=== PATIENT | female | born 1940 | race Caucasian/White ===

== ENCOUNTER 2021-11-19 21:45 | Inpatient (IN) | payer MEDICARE, SELFPAY ==
[2021-11-20] MEDS ORDERED: Ondansetron ODT 4 MG TAB PO PRN (01:34)
[2021-11-20] MEDS ORDERED: Morphine 4 MG/ML VIAL SLOW IVP PRN (01:34)
[2021-11-20] MEDS ORDERED: Morphine 2 MG/ML VIAL SLOW IVP PRN (01:34)
[2021-11-20] MEDS ORDERED: Dextrose 5% in Water 1,000 ML IV PRN (01:34)
[2021-11-20] MEDS ORDERED: Dextrose 50% Abboject 50 ML SYRINGE SLOW IVP PRN (01:34)
[2021-11-20] MEDS ORDERED: hydrALAZINE 20 MG/ML VIAL SLOW IVP PRN (01:34)
[2021-11-20] MEDS ORDERED: Ondansetron PF 4 MG/2 ML Vial IVP PRN (01:34)
[2021-11-20] MEDS ORDERED: Cyclobenzaprine 10 MG TAB PO PRN (01:42)
[2021-11-20] MEDS ORDERED: traMADol HCl 50 MG TAB PO PRN (01:42)
[2021-11-20] MEDS ORDERED: traMADol HCl 50 MG TAB PO SCH (01:45)
[2021-11-20] MEDS ORDERED: Acetaminophen 325 MG TAB PO SCH (01:45)
[2021-11-20] MEDS ORDERED: Sodium Chloride 0.9% 1,000 ML IV SCH (01:45)
[2021-11-20] MEDS ORDERED: Morphine 2 MG/ML VIAL ONE (01:47)
[2021-11-20] MEDS ORDERED: Ondansetron PF 4 MG/2 ML Vial ONE (01:47)
[2021-11-20 01:49] LABS: #Lymphocytes 1.1 thou/uL (1.20-3.40); #Monocytes 0.5 thou/uL (0.11-0.59); #Neutrophils 4.4 thou/uL (1.40-6.50); %Basophils 0.6 % (0.0-1.0); %Eosinophils 0.6 % (0.0-10.0); %Lymphocytes 18.4 % (21.0-51.0); %Monocytes 8.6 % (0.0-10.0); %Neutrophils 71.8 % (42.0-75.0); Hemoglobin 12.9 g/dL (12.0-16.0); Mean Corpuscular HGB CONC 33.7 g/dL (32.0-36.0); Mean Corpuscular Hemoglobin 31.6 pg (27.0-31.0); Mean Corpuscular Volume 93.8 fL (78.0-98.0); Mean Platelet Volume 7.6 fL (7.4-10.4); Platelet Count 213 thou/uL (130-400); RBC Distribution Width 11.3 % (11.5-14.5); Red Blood Cell (RBC) Count 4.08 mill/uL (4.20-5.40); White Blood Cell (WBC) Count 6.1 thou/uL (4.8-10.8)
[2021-11-20 02:07] LABS: ALT (SGPT) 19 U/L (8-55); AST (SGOT) 19 U/L (5-34); Albumin 3.1 g/dL (3.4-4.8); Alkaline Phosphatase 111 U/L (40-110); Anion Gap 16 mmol/L (10-20); BUN (Urea Nitrogen) 19 mg/dL (9.8-20.1); Bilirubin, Total 0.8 mg/dL (0.2-1.2); Calc. Creatinine Clearance 0 mL/min (70-130); Calcium 8.8 mg/dL (7.8-10.44); Carbon Dioxide 27 mmol/L (23-31); Chloride 102 mmol/L (98-107); Estimated GFR 91; Globulin 2.5 g/dL (2.4-3.5); Glucose 106 mg/dL (83-110); Magnesium 1.9 mg/dL (1.6-2.6); Phosphorus 3.1 mg/dL (2.3-4.7); Potassium 3.5 mmol/L (3.5-5.1); Protein, Total 5.6 g/dL (5.8-8.1); Sodium 141 mmol/L (136-145)
[2021-11-20] MEDS: Acetaminophen 325 MG TAB PO SCH ×2 (03:47→10:18)
[2021-11-20] MEDS: traMADol HCl 50 MG TAB PO SCH ×2 (03:47→10:18)
[2021-11-20] MEDS ORDERED: Non-Formulary Item 1 EACH (Sertraline Hcl [Sertraline Hcl] 50 MG Tablet) PO SCH (09:00)
[2021-11-20] MEDS ORDERED: Carbidopa/Levodopa 25-100 mg Tablet PO SCH (09:00)
[2021-11-20] MEDS ORDERED: Famotidine 20 MG TAB PO SCH (09:00)
[2021-11-20] MEDS ORDERED: OLANZAPINE 10 MG PO SCH (09:00)
[2021-11-20 12:19] VITALS: BP 176/78; TEMP 98.2
[2021-11-20] MEDS ORDERED: Senokot S 8.6-50 MG TAB PO SCH (21:00)
[2021-11-21] MEDS ORDERED: Metamucil PACK PO SCH (09:00)
[2021-11-21] MEDS ORDERED: PSYLLIUM HUSK 0.4 GM PO SCH (09:00)
[2021-11-21] MEDS ORDERED: OLANZapine 5 MG TAB PO SCH (09:00)
[2021-11-21] MEDS ORDERED: Polyethylene Glycol 3350 17 GM Packet PO SCH (09:00)
[2021-11-21] MEDS ORDERED: Non-Formulary Item 1 EACH (Polyethylene Glycol 3350 [Miralax] 119 GM Bottle) PO SCH (09:00)
[2021-11-21] MEDS ORDERED: Potassium Chloride 10 MEQ TAB PO SCH (09:00)
== END 2021-11-20 15:54 | DRG 535 ==
LOC: ERS 21:45 → SURG A 11-20 01:20
PROVIDERS: ADMIT Surgery; ATTEND Surgery
DX: S72.002A Fracture of unspecified part of neck of left femur, initial encounter for closed fracture (principal); S72.011A Unspecified intracapsular fracture of right femur, initial encounter for closed fracture; W19.XXXA Unspecified fall, initial encounter; G30.9 Alzheimer's disease, unspecified; F02.80 Dementia in other diseases classified elsewhere, unspecified severity, without behavioral disturbance, psychotic disturbance, mood disturbance, and anxiety; Y92.129 Unspecified place in nursing home as the place of occurrence of the external cause
CPT/HCPCS: 36415; 71045; 72170; 80053; 83735; 84100; 85025; 93005; 96374; 96375; G0390; J2270; J2405; J7050

== ENCOUNTER 2022-08-13 22:08 | Emergency (ER) | payer OTHER, MEDICARE ==
[2022-08-14 00:12] LABS: #Eosinphils 0.1 thou/uL (0.0-0.7); #Lymphocytes 1.6 thou/uL (1.20-3.40); #Monocytes 0.6 thou/uL (0.11-0.59); #Neutrophils 5.2 thou/uL (1.40-6.50); %Basophils 0.4 % (0.0-1.0); %Eosinophils 1.4 % (0.0-10.0); %Lymphocytes 21.3 % (21.0-51.0); %Monocytes 7.8 % (0.0-10.0); %Neutrophils 69.1 % (42.0-75.0); Hemoglobin 13.8 g/dL (12.0-16.0); Mean Corpuscular HGB CONC 32.6 g/dL (32.0-36.0); Mean Corpuscular Hemoglobin 30.1 pg (27.0-31.0); Mean Corpuscular Volume 92.5 fl (78.0-98.0); Mean Platelet Volume 7.7 fL (7.4-10.4); Platelet Count 174 10x3/uL (130-400); RBC Distribution Width 11.8 % (11.5-14.5); Red Blood Cell (RBC) Count 4.59 mill/uL (4.20-5.40); White Blood Cell (WBC) Count 7.6 10x3/uL (4.8-10.8)
[2022-08-14 00:31] LABS: ALT (SGPT) 14 U/L (8-55); AST (SGOT) 18 U/L (5-34); Albumin 3.7 g/dL (3.4-4.8); Alkaline Phosphatase 119 U/L (40-110); Anion Gap 14 mmol/L (10-20); BUN (Urea Nitrogen) 22 mg/dL (9.8-20.1); Bilirubin, Total 0.4 mg/dL (0.2-1.2); Calc. Creatinine Clearance 0 mL/min (70-130); Calcium 8.8 mg/dL (7.8-10.44); Carbon Dioxide 23 mmol/L (23-31); Chloride 107 mmol/L (98-107); Estimated GFR 77; Globulin 2.3 g/dL (2.4-3.5); Glucose 88 mg/dL (83-110); Potassium 3.5 mmol/L (3.5-5.1); Sodium 140 mmol/L (136-145)
[2022-08-14] MEDS ORDERED: Boostrix 0.5 ML (Tdap) VIAL (>/=7 yrs of age) ONE (00:49)
== END 2022-08-14 01:34 | disposition home or self-care (01) ==
LOC: ERS 22:08
DX: S01.01XA Laceration without foreign body of scalp, initial encounter (principal); G20 Parkinson's disease; F02.80 Dementia in other diseases classified elsewhere, unspecified severity, without behavioral disturbance, psychotic disturbance, mood disturbance, and anxiety; W01.0XXA Fall on same level from slipping, tripping and stumbling without subsequent striking against object, initial encounter; Y92.129 Unspecified place in nursing home as the place of occurrence of the external cause
CPT/HCPCS: 12001; 36415; 70450; 72125; 80053; 85025; 90715

== ENCOUNTER 2024-02-01 10:12 | Emergency (ER) | payer MEDICARE, OTHER ==
[2024-02-01] MEDS ORDERED: Iopamidol-370 76% 500 ML MDV (1 ML CHARGE) ONE (10:39)
[2024-02-01] MEDS ORDERED: Ondansetron PF 4 MG/2 ML Vial ONE (12:17)
[2024-02-01 12:18] LABS: #Basophils 0.04 10x3/uL (0.0-0.2); %Basophils 0.8 % (0.0-1.0); %Eosinophils 1.9 % (0.0-10.0); %Monocytes 5.8 % (0.0-10.0); %Neutrophils 71.3 % (42.0-75.0); Hematocrit 40.3 % (36.0-47.0); Hemoglobin 13.4 g/dL (12.0-16.0); Mean Corpuscular HGB CONC 33.3 g/dL (32.0-36.0); Mean Corpuscular Hemoglobin 29.6 pg (27.0-31.0); Mean Corpuscular Volume 89.2 fL (78.0-98.0); Mean Platelet Volume 10.4 fL (7.4-10.4); Platelet Count 161 10x3/uL (130-400); RBC Distribution Width 12.5 % (11.5-14.5); Red Blood Cell (RBC) Count 4.52 mill/uL (4.20-5.40)
[2024-02-01 12:32] LABS: ALT (SGPT) 5 U/L (8-55); AST (SGOT) 12 U/L (5-34); Albumin 3.4 g/dL (3.4-4.8); Alkaline Phosphatase 85 U/L (40-110); Anion Gap 9 mmol/L (10-20); BUN (Urea Nitrogen) 17 mg/dL (9.8-20.1); Bilirubin, Total 0.6 mg/dL (0.2-1.2); Calc. Creatinine Clearance 0 mL/min (70-130); Calcium 8.6 mg/dL (7.8-10.44); Carbon Dioxide 26 mmol/L (23-31); Chloride 107 mmol/L (98-107); Estimated GFR 88; Globulin 2.1 g/dL (2.4-3.5); Glucose 91 mg/dL (83-110); Potassium 3.8 mmol/L (3.5-5.1); Protein, Total 5.5 g/dL (5.8-8.1); Sodium 138 mmol/L (136-145)
[2024-02-01 12:35] LABS: Troponin I 0.025 ng/mL (< 0.028)
[2024-02-01 16:16] LABS: Bacteria/HPF None Seen HPF (None Seen); Bilirubin Negative (Negative); Blood, Urine Negative (Negative); CAUTI Indications for Culture Alt mental st,lethar; Clarity Clear (Clear); Glucose, Urine (Dipstick) Normal (Negative); Ketone, Urine Negative (Negative); Leukocyte Negative Leu/uL (Negative); Nitrite Negative (Negative); Protein, Urine (Dipstick) Negative (Neg-Trace); RBC/HPF None Seen HPF (0-3); Squamous Epithelial None Seen HPF (0-3); Urobilinogen Normal mg/dL (Less than 2); WBC/HPF 0-3 HPF (0-3)
[2024-02-01 16:32] LABS: Urine Culture Reflex No No
== END 2024-02-01 15:51 | disposition home or self-care (01) ==
LOC: ERS 10:12
DX: R55 Syncope and collapse (principal); R11.2 Nausea with vomiting, unspecified; R10.9 Unspecified abdominal pain; R41.82 Altered mental status, unspecified
CPT/HCPCS: 70450; 71045; 72125; 74177; 80053; 81001; 83605; 83735; 84484; 85025; 87040; 87086; 93005; 96374; 99285; J2405; Q9967; 36415